=== PATIENT | male | born 1985 | race Hispanic/Latino ===

== ENCOUNTER 2021-01-08 13:40 | Emergency (ER) | payer SELFPAY ==
[2021-01-08] VITALS (16 sets, daily range): BP systolic 107–137; BP diastolic 78–91; PULSE 58–80; RESP 14–20; TEMP 36.2; O2SAT 99–100
--- NOTE | ~2021-01-08 | XR_ITS ---
EXAMINATION: XR chest 2V DATE: 01/08/2021 15:13 INDICATION: Palpitations. Chest discomfort. Cold extremities. Weakness. TECHNIQUE: PA and lateral views of the chest were obtained. COMPARISON: None FINDINGS: The lungs are clear with no focal airspace opacities, pulmonary edema, pleural effusion or pneumothor ax. The cardiomediastinal silhouette is normal. Visualized bones and soft tissues are unremarkable. IMPRESSION: 1. Normal chest radiograph. Reviewed, dictated and finalized at location A. [employer] IMPRESSION: 1. Normal chest radiograph.
--- NOTE | 2021-01-08 13:45 | ECG_ITS ---
Measurements Intervals [place] Rate: 72 P: 28 [place]: 139 QRS: -8 QRSD: 110 T: 0 QT: 345 QTc: 380 Interpretive Statements SINUS RHYTHM INCOMPLETE RIGHT BUNDLE BRANCH BLOCK BORDERLINE T WAVE ABNORMALITY- ANTEROLAT/INF LEADS BASELINE ARTIFACT- III, AVF, V5 BORDERLINE ECG Electronically Signed On 01-08-2021 13:58:33 [employer]ACING [employer] by Benji Romero D.O.
[2021-01-08 14:08] LABS: Basophils Percent Auto 0.3 % (0.2-1.2); Eosinophils Percent Auto 0.4 % (0-4.4); Hematocrit 43.7 % (42.0-52.0); Hemoglobin 15.5 g/dL (14.0-18.0); Immature Granulocyte Absolute 0.03 K/mm3 (0.00-0.031); Immature Granulocyte Percent A 0.4 % (0-0.5); Lymphocytes Absolute Auto 1.97 K/mm3 (0.9-3.2); Lymphocytes Percent Auto 25.4 % (18.3-44.2); Mean Corpuscular HGB Conc 35.5 g/dl (32-36); Mean Corpuscular Hemoglobin 32.8 pg (26-34); Mean Corpuscular Volume 92.4 fl (80-100); Mean Platelet Volume 10.1 fl (7.4-10.4); Monocytes Absolute Auto 0.4 K/mm3 (0.1-0.6); Monocytes Percent Auto 4.6 % (2.6-8.5); Neutrophils Absolute Auto 5.3 K/mm3 (1.3-6.7); Neutrophils Percent Auto 68.9 % (45.5-73.1); Platelet Count Result 278 k/mm3 (150-375); Red Blood Count 4.73 M/mm3 (4.6-6.20); Red Cell Distribution Width 12.1 % (11.5-14.5); White Blood Count 7.8 K/mm3 (4.5-10.0)
[2021-01-08 14:17] LABS: INR 1.1; Prothrombin Time 13.8 Seconds (11.1-14.7)
[2021-01-08 14:18] LABS: Partial Thromboplastin Time 31.8 SECONDS (22.3-36.8)
[2021-01-08 14:22] LABS: Alanine Aminotransferase 43 U/L (4-50); Alkaline Phosphatase 73 U/L (38-126); Anion Gap 13 mmol/L (8-16); Aspartate Amino Transferase 31 U/L (17-59); Bilirubin,Total 0.8 mg/dL (0.2-1.3); Blood Urea Nitrogen 20 mg/dL (9-20); Calcium 9.6 mg/dL (8.4-10.2); Carbon Dioxide 22 mmol/L (22-30); Chloride 101 mmol/L (98-107); Estimated CRCL calculation 100 ml/min; Estimated Glomerular Filt Rate > 60; Glucose 113 mg/dL (65-110); Lipase 165 U/L (23-300); Potassium 3.6 mmol/L (3.4-5.0); Sodium 136 mmol/L (137-145)
[2021-01-08 14:32] LABS: Troponin I < 0.012 ng/mL (0.000-0.034)
[2021-01-08 17:10] LABS: Troponin I < 0.012 ng/mL (0.000-0.034)
[2021-01-08 17:53] LABS: Free T4 Free Thyroxine 0.95 ng/mL (0.78-2.19)
--- NOTE | 2021-01-08 18:11 | ED.GENADULT ---
HPI - General Adult General Chief complaint: Arrhythmia/Palpitations Stated complaint: cold hands and feet, feeling low Time Seen by Provider: 01/08/21 17:23 Source: patient Mode of arrival: ambulatory Limitations: no limitations History of Present Illness HPI narrative: 35-year-old male Previously in good health He is fine currently however over the past several weeks he has had a series of symptoms which caused him some concern and anxiety so he decided to come in and get checked out today About 3 or 4 weeks ago he felt like he was having palpitations Several days ago he had some soreness in the lower left part of his chest And yesterday he had some anterior chest discomfort His symptoms do not radiate and are not precipitated by anything in particular He does not have fever or cough, he does not have shortness of breath, he does not have nausea or vomiting He does not smoke, he has not had a blood sugar checked in quite some time but has no history of diabetes that he knows of and is not aware of ever having his cholesterol checked Today none of the symptoms are present but his hands and feet feel cold Related Data Home Medications Medication Instructions Recorded Confirmed No Home Medications 01/08/21 01/08/21 Allergies Allergy/AdvReac Type Severity Reaction Status Date / Time No Known Allergies Allergy Verified 01/08/21 17:05 Review of Systems Review of Systems: All systems reviewed & are unremarkable except as noted in HPI and below Constitutional: Constitutional: Reports no additional constitutional complaints, Denies chills, Denies fever(s) and Denies headache(s) Eyes: Eyes: Reports no additional eye complaints and Denies change in vision ENT: Denies headache(s) and Denies sore throat Cardiovascular: Cardiovascular: Reports chest pain, Reports rapid heart rate and Denies dyspnea Respiratory: Respiratory: Denies cough and Denies dyspnea Gastrointestinal: Gastrointestinal: Denies abdominal pain, Denies diarrhea and Denies vomiting Genitourinary: Genitourinary: Denies dysuria and Denies urinary frequency Musculoskeletal: Musculoskeletal: Denies deformity, Denies arthralgias, Denies joint swelling and Denies numbness Integumentary/Breasts: Skin/Breast: Denies rash and Denies wounds Neurologic: Denies headache(s), Denies focal weakness and Denies numbness Psychiatric: Psychiatric: Reports no additional psychiatric complaints Endocrine: Endocrine: Reports as per HPI Hematologic/Lymphatic: Hematologic/Lymphatic: Reports no additional hematologic/lymphatic complaints Allergic/Immunologic: Allergic/Immunologic: Reports no additional allergic/immunologic complaints Exam Const: General: cooperative, no acute distress and alert Orientation/consciousness: patient oriented x3 (alert) HENMT: Head: normal to inspection, normocephalic and atraumatic Ears: external ears normal General nose exam: no epistaxis Eyes: Conjunctivae: conjunctivae normal Pupils: Equal, round and reactive pupils present EOM: EOMs intact bilaterally Neck: Neck: normal visual inspection, supple and no JVD Chest: Other: No chest wall tenderness, no reproducible pain, no pleuritic pain Resp: Effort & Inspection: normal respiratory effort and not labored Auscultation: clear to auscultation bilaterally, no rales, no rhonchi, no wheezes and other (BS =) Cardio: Rate: regular rate Rhythm: regular rhythm Heart sounds: no murmurs GI: GI Palp: Yes Soft to palpation and No Tenderness to palpation present (GI) Skin: General skin exam: normal color and no rashes or lesions noted Neuro: General: patient oriented x3 (alert) and moves all extremities Speech: normal speech Extrem: General: normal to inspection and no pedal edema Other: Normal radial pulses Psych: Affect: normal affect Course Course Emergency Course: Discussed with patient, results are very reassuring for all of his tests and we will get him follow-up
== END 2021-01-08 19:10 | disposition home or self-care (01) ==
PROVIDERS: Emergency Medicine; Emergency Provider Emergency Medicine
DX: R00.2 Palpitations (principal); R07.89 Other chest pain
CPT/HCPCS: 36415; 71046; 80053; 83690; 84439; 84443; 84484; 85025; 85610; 85730; 93005; 99284